=== PATIENT | female | born 1960 | race Two or more races ===

== ENCOUNTER → 2022-03-10 | Outpatient (CLI) | payer BC, SELFPAY | END | disposition home or self-care (01) | PROVIDERS: Referring Provider Internal Medicine Gastroenterology; Visit Provider Internal Medicine Gastroenterology | DX: R19.7 Diarrhea, unspecified (principal); Z86.19 Personal history of other infectious and parasitic diseases | CPT/HCPCS: 87493 ==

== ENCOUNTER 2022-03-18 12:31 | Emergency (ER) | payer BC, SELFPAY ==
[2022-03-18 12:33] VITALS: BP 154/96; PULSE 77; RESP 16; TEMP 36.5; O2SAT 100; BMI 22.8
--- NOTE | 2022-03-18 13:05 | US_ITS ---
STUDY: ABDOMINAL ULTRASOUND REASON FOR EXAM: Female, 61 years old. PAIN, n/v, jaundice TECHNIQUE: Transabdominal ultrasound was performed with real-time and static rucker scale imaging. TECHNICAL QUALITY: Adequate. COMPARISON: None. FINDINGS: Liver: The liver measures 15 cm. There is normal echogenicity of the liver. The bile ducts are within normal limits. There is hepatic color flow. The direction of portal flow is hepatopetal. There is no demonstrated mass lesion. Portal vein measurement: Gallbladder: There is a contracted gallbladder. The gallbladder wall measures 1.9 mm. There is a negative sonographic Guardado''s sign. There is no pericholecystic fluid. There are no gallstones. Common Bile Duct (C.B.D.): The common bile duct measures 3 mm. Pancreas: Normal size of the head, body and tail of the pancreas. There is normal echogenicity of the pancreas. There is no demonstrated pancreatic mass or cyst. Right Kidney: Normal size of the right kidney. The right kidney measures 10.7 cm x 5.7 cm x 4.7 cm. Normal renal cortex. The right cortex measures 1.4 cm. There is no demonstrated renal mass or cyst. There is no right hydronephrosis. US/Gallbladder IMPRESSION: Normal abdominal ultrasound examination. Electronically Signed: Lane Palacios MD at 14:02 EDT ,
--- NOTE | 2022-03-18 13:10 | ED.VIS.GI ---
HPI HPI - GI History of Present Illness Chief Complaint: Abd Pain Informant: patient Narrative Narrative: Patient with upper abdominal pain for the last several months and she developed diarrhea after being put on 2 courses of antibiotics for sinus infection and then developed C. difficile colitis. She was on Flagyl, did not take care of the diarrhea so she went to the [facility] ER where she was changed to oral vancomycin, it still did not resolve so she followed up with Dr. Botello with GI who put her on Dificid, and the diarrhea resolved but she is still been having abdominal pains. Within the last day or 2, her eyes are turning yellow so she comes to the emergency department for further evaluation. The pain does occasionally radiate to her right shoulder and her right back. She has had very poor appetite and oral food intake and a 30 pound weight loss in the last couple of months; she does not know if food makes the pain worse and she is not eating very much and when she does eat it is very bland. She has never had any surgeries in her abdomen, she did have a CT of the abdomen with IV contrast during one of her ED visits that she was told was negative. She denies any fevers, chills, confusion. No urinary symptoms but her urine is dark yellow. She denies having any diarrhea or bright red blood per rectum or melena now. She is healthy and takes blood pressure medications only. [facility] Medical History Anxiety HTN (hypertension) Home Medications atenolol 25 mg tablet 1 tab PO DAILY 03/18/22 [History Last Taken Unknown] dicyclomine 10 mg capsule 20 mg PO Q6H PRN PRN abdominal discomfort #20 CAPSULES 03/18/22 [Rx Last Taken Unknown] escitalopram oxalate 10 mg tablet 1 tab PO DAILY 03/18/22 [History Last Taken Unknown] ondansetron 4 mg disintegrating tablet 8 mg PO Q8H PRN PRN Nausea #20 tabs 03/18/22 [Rx Last Taken Unknown] trazodone 50 mg tablet 1 tab PO PRN PRN Sleep 03/18/22 [History Last Taken Unknown] Allergy/AdvReac Type Severity Reaction Status Date / Time No Known Allergies Allergy Verified 03/18/22 12:32 Social History Smoking Status: Never smoker ROS ROS ED Constitutional Constitutional ED: Reports anorexia and weight loss; Denies chills or fever(s) Eyes Eyes: Reports as per HPI and change in eye color; Denies change in vision or diplopia ENT ENT ED: Denies rhinorrhea or sore throat Cardiovascular Cardiovascular: Denies chest pain or palpitations Respiratory/Chest Respiratory/Chest: Denies cough or dyspnea Gastrointestinal Gastrointestinal: Reports abdominal pain, nausea and vomiting; Denies diarrhea or melena Genitourinary Genitourinary ED: Denies dysuria, hematuria or urinary frequency Musculoskeletal Musculoskeletal: Denies back pain or neck pain Integumentary Denies abscess or rash Neurologic Neurologic: Denies headache(s), paresthesias or weakness Psychiatric Psychiatric: Denies anxiety or suicidal thoughts EXAM Physical Exam Const Vital Signs: 03/18/22 12:33 03/18/22 16:00 Temperature 97.7 F L Temperature Source Temporal Pulse Rate 77 79 Respiratory Rate 16 16 Blood Pressure 154/96 H 138/82 H Blood Pressure Mean 115 100 Pulse Ox 100 98 Oxygen Delivery Method Room Air Room Air Positive well nourished and well developed General Appearance ED: well developed and NAD HEENT Reports moist mucous membranes HEENT Narrative: No gross sublingual jaundice normocephalic and atraumatic Eyes PERRL and EOMs intact bilaterally Eyes Narrative: Mild scleral icterus. Neck full ROM and supple Resp normal respiratory effort and clear to auscultation bilaterally Cardio regular rate, regular rhythm and no murmurs GI non-distended GI Narrative: Tender right upper quadrant mostly though in epigastrium. No guarding or rebound. Negative Guardado's. Otherwise nontender. Auscultation: normoactive bowel sounds Palpation: soft Back/Spine no CVA tenderness General Back: other FROM Extremity normal to inspection General Extremety ED: Negative for edema, pulses abnormal or tenderness General Extremity: Negative for edema or pulses abnormal Neuro oriented x3, CN's II-XII intact bilaterally and no sensory deficits noted Sensorium / Orientation: awake and alert Motor Exam: strength 5/5 throughout Skin no rashes or lesions noted and no wounds Skin Narrative: No obvious jaundice. MDM MDM MDM Narrative Medical decision making narrative: My concern was for cholecystitis here, so an ultrasound and blood work was obtained, her bilirubin is elevated 2.3, potassium slightly elevated at 10.6, but the rest of her liver enzymes are normal including lipase, and the ultrasound of the right upper quadrant is completely normal. She does not have a leukocytosis. Her symptoms were treated. After discussion with the patient we decided to obtain a CT with IV contrast, the last one she had was in December and she is not sure if the symptoms of the same, worse, etc. That was basically unremarkable except for some diverticulosis without signs of diverticulitis. I discussed with her GI Dr. Dr. Botello, who is planning on scoping her next week after the holiday weekend. She will follow-up as scheduled, the patient states that she has apparent who has Gilbert's syndrome, which this patient may also have as she has remembered in the past that she has had elevated bilirubins before in this range. Lab Data Attestation: I reviewed the patient's lab results. Labs: Laboratory Results - last 24 hr 03/18/22 03/18/22 03/18/22 13:14 13:15 13:15 WBC 6.0 RBC 4.76 Hgb 14.6 Hct 43.7 MCV 91.8 MCH 30.7 MCHC 33.4 RDW Std Deviation 43.0 RDW Coeff of Tamika 12.7 Plt Count 255 MPV 10.4 Immature Gran % (Auto) 0.200 Neut % (Auto) 65.8 Lymph % (Auto) 23.5 Cocke % (Auto) 9.5 Eos % (Auto) 0.7 Baso % (Auto) 0.3 Absolute Neuts (auto) 4.0 Absolute Lymphs (auto) 1.41 Nucleated RBC % 0 Sodium 141 Potassium 4.2 Chloride 105 Carbon Dioxide 28.0 Anion Gap 8 BUN 10 Creatinine 0.87 Estim Creat Clear Calc 62.65 Est GFR (MDRD) Af Amer 86 Est GFR (MDRD) Non-Af 71 BUN/Creatinine Ratio 11.5 Glucose 125 H Calcium 10.6 H Total Bilirubin 2.30 H AST 25 ALT 33 Alkaline Phosphatase 67 Total Protein 7.6 Albumin 4.3 Globulin 3.3 Albumin/Globulin Ratio 1.3 Lipase 143 Urine Color Yellow Urine Clarity Clear Urine pH 7.0 Ur Specific Mar Lin 1.010 Urine Protein Negative Urine Glucose (UA) Normal Urine Ketones 15 H Urine Occult Blood Negative Urine Nitrite Negative Urine Bilirubin Negative Urine Urobilinogen Normal Ur Leukocyte Esterase Negative Urine RBC 0 SEEN Urine WBC 0 SEEN Ur Squamous Epith Cells 0 SEEN Urine Bacteria 0 SEEN Urine Mucus 0 SEEN Radiography Diagnostic Testing: Clinical Impression(s) from Imaging Studies Gallbladder Ultrasound 03/18/22 13:05 IMPRESSION: Normal abdominal ultrasound examination. Electronically Signed: Lane Palacios MD at 14:02 EDT , Abdomen/Pelvis CT 03/18/22 15:38 IMPRESSION: Colonic diverticulosis without acute diverticulitis. 4 mm lesion in the left hepatic lobe, too small to characterize Electronically Signed: Supriya De Santiago MD at 16:19 EDT , Discharge Plan Triage Chief Complaint: Abd Pain ED Provider: Hermilo Munguia Dx/Rx/DC Orders Clinical Impression: Acute upper abdominal pain, Hyperbilirubinemia Instructions: Total Bilirubin (Blood), Abdominal Pain Prescriptions: New dicyclomine 10 mg capsule 20 mg PO Q6H PRN PRN (Reason: abdominal discomfort) Qty: 20 0RF ondansetron [ondansetron] 4 mg tablet,disintegrating 8 mg PO Q8H PRN PRN (Reason: Nausea) Qty: 20 0RF No Action trazodone 50 mg tablet 1 tab PO PRN PRN (Reason: Sleep) atenolol 25 mg tablet 1 tab PO DAILY escitalopram oxalate 10 mg tablet 1 tab PO DAILY Primary Care Provider: Care Physician,No Primary Referrals: Young Botello MD [NON-STAFF] - [facility] appointment [facility],Out of [NON-STAFF] - Disposition Disposition: Home, Self Care
[2022-03-18 13:19] LABS: Absolute Lymphocyte Count 1.41 X10^3/uL (0.83-4.51); Basophil# 0.02 X10^3/uL; Basophil% 0.3 % (0-1); Eosinophil# 0.04 X10^3/uL; Eosinophils% 0.7 % (0-5); Hematocrit 43.7 % (37-47); Hemoglobin 14.6 g/dL (12.0-15.0); Lymphocyte # 1.41 X10^3/ul (0.83-4.51); Lymphocyte % 23.5 % (19-41); Mean Corp Hgb Conc 33.4 g/dL (32-36); Mean Corpuscular Hgb 30.7 pg (27.0-32.0); Mean Corpuscular Volume 91.8 fL (81-99); Mean Platelet Vol. 10.4 fl (6.2-12.0); Monocyte# 0.57 X10^3/uL; Monocyte% 9.5 % (0-10); NRBC Flagged by Analyzer 0 % (0-5); Neutrophil # 3.96 X10^3/uL (2.7-7.7); Neutrophil % 65.8 % (47-70); Platelet Count 255 K/mm3 (150-450); RBC Distribution Width CV 12.7 % (11.6-14.6); Red Blood Count 4.76 M/mm3 (4.2-5.4)
[2022-03-18 13:21] LABS: Bacteria 0 SEEN /hpf (None Seen); Mucous, Urine 0 SEEN /hpf (<or=2+); Red Blood Cells-Urine 0 SEEN /hpf (0-5); Squamous Epithelial Cells - UA 0 SEEN /hpf (5-10); White Blood Cells 0 SEEN /hpf (0-5)
[2022-03-18 13:22] LABS: Color, Urine Yellow (Yellow); Glucose, Dipstick Normal (Normal); Ketone-Dipstick 15 mg/dl (Negative); Leukocyte Esterase-Dipstick Negative /ul (Negative); Nitrite-Dipstick Negative (Negative); Occult Blood-Urine Negative /ul (Negative); Protein-Dipstick Negative (Negative); Urine Bilirubin Dipstick Negative (Negative); Urine Clarity Clear (Clear); Urine Urobilinogen Normal (Normal)
[2022-03-18 13:35] LABS: ALB/GLOB Ratio 1.3 RATIO (0.9-2.4); AST(SGOT) 25 U/L (15-37); Alanine Aminotransfer ALT/SGPT 33 U/L (13-56); Albumin, Serum 4.3 g/dL (3.2-5.0); Alkaline Phosphatase 67 U/L (45-117); Anion Gap 8 (5-15); BUN 10 mg/dL (7-18); BUN/Creat Ratio 11.5 RATIO (10-20); Calcium,Total 10.6 mg/dL (8.5-10.1); Chloride 105 mmol/L (98-107); Creatinine, Serum 0.87 mg/dL (0.55-1.02); EST Glomerular Filtration Rate 71 mL/min (>60); Est Glom Filt Rate - Afr Amer 86 mL/min (>60); Estimated Creatinine Clearance 62.65 ml/min; Globulin 3.3 g/dL (2.2-4.2); Glucose 125 mg/dL (74-106); Lipase 143 U/L (73-393); Potassium 4.2 mmol/L (3.5-5.1); Protein, Total 7.6 g/dL (6.4-8.2); Sodium Level 141 mmol/L (136-145)
--- NOTE | 2022-03-18 15:38 | CT_ITS ---
HISTORY: jaundice, upper abdominal pain. TECHNIQUE: Helically acquired images were obtained of the abdomen and pelvis after the intravenous administration of 100mL Isovue-300. A radiation dose optimization technique was used for this scan. 395 images. COMPARISON: US same day. FINDINGS: LOWER CHEST: Lung bases clear. BOWEL: Bowel including appendix nondilated. Colonic diverticulosis without focal pericolonic inflammation. PERITONEUM: No significant ascites. LIVER: 4 mm hypodensity in the left lobe. GALLBLADDER/BILIARY TREE: Gallbladder present. SPLEEN/PANCREAS: Homogeneous and nonenlarged. KIDNEYS/ADRENAL GLANDS: Unremarkable. VESSELS: No abdominal aortic aneurysm. PELVIC ORGANS: Unremarkable. BONES: Mild degenerative change. CT/Abdomen/Pelvis W IV Cont ONLY IMPRESSION: Colonic diverticulosis without acute diverticulitis. 4 mm lesion in the left hepatic lobe, too small to characterize Electronically Signed: Supriya De Santiago MD at 16:19 EDT ,
[2022-03-18] MEDS: Dicyclomine 10 MG Capsule 20 MG PO (15:46)
[2022-03-18] MEDS: Ondansetron 4 MG/2 ML Vial IV (15:46)
[2022-03-18 16:00] VITALS: BP 138/82; PULSE 79; RESP 16; O2SAT 98
[2022-03-18] MEDS: Morphine 4 MG/ML Syringe IV (16:10)
[2022-03-18 18:00] VITALS: BP 126/72; PULSE 74; RESP 16; O2SAT 99
== END 2022-03-18 18:10 | disposition home or self-care (01) ==
PROVIDERS: Emergency Provider Emergency Medicine; Visit Provider Emergency Medicine
DX: R10.10 Upper abdominal pain, unspecified (principal); E80.4 Gilbert syndrome; I10 Essential (primary) hypertension; Z79.899 Other long term (current) drug therapy
CPT/HCPCS: 74177; 76705; 80053; 81001; 83690; 85025; 96361; 96374; 96375; 99283; J7040; Q9967; A4216; J2405